=== PATIENT | female | born 1970 | race Caucasian/White ===

== ENCOUNTER 2019-11-09 11:27 | Outpatient (RCR) | payer BC, SELFPAY | END 2019-12-05 23:59 | disposition home or self-care (01) | LOC: SPT 11:27 | PROVIDERS: PCP Family Medicine; Referring Provider Orthopaedic Surgery; Visit Provider Orthopaedic Surgery | DX: M54.31 Sciatica, right side (principal) | CPT/HCPCS: 97110; 97161 ==

== ENCOUNTER 2019-12-06 06:00 | Outpatient (RCR) | payer BC, SELFPAY | END 2020-01-05 23:59 | disposition home or self-care (01) | LOC: SPT 06:00 | PROVIDERS: PCP Family Medicine; Referring Provider Orthopaedic Surgery; Visit Provider Orthopaedic Surgery | DX: M54.31 Sciatica, right side (principal); M62.81 Muscle weakness (generalized) | CPT/HCPCS: 97110 ==

== ENCOUNTER 2020-01-06 06:00 | Outpatient (RCR) | payer BC, SELFPAY | END 2020-02-04 23:59 | disposition home or self-care (01) | LOC: SPT 06:00 | PROVIDERS: PCP Family Medicine; Referring Provider Orthopaedic Surgery; Visit Provider Orthopaedic Surgery | DX: M54.31 Sciatica, right side (principal) | CPT/HCPCS: 97110; G0283 ==

== ENCOUNTER 2020-02-05 06:00 | Outpatient (RCR) | payer BC, SELFPAY | END 2020-03-06 23:59 | disposition home or self-care (01) | LOC: SPT 06:00 | PROVIDERS: PCP Family Medicine; Referring Provider Orthopaedic Surgery; Visit Provider Orthopaedic Surgery | DX: M54.31 Sciatica, right side (principal) | CPT/HCPCS: 97110 ==